=== PATIENT | female | born 1995 | race Caucasian/White ===

== ENCOUNTER → 2024-05-10 12:48 | Outpatient (CLI) | payer OTHER, SELFPAY ==
[2024-05-10 18:35] LABS: TSH w/ Reflex to FT4 1.64 uIU/mL (0.47-4.68)
== END ==
LOC: LAB 12:50
PROVIDERS: Referring Provider Obstetrics & Gynecology; Visit Provider Obstetrics & Gynecology
DX: Z86.39 Personal history of other endocrine, nutritional and metabolic disease (principal)
CPT/HCPCS: 36415; 84443

== ENCOUNTER → 2024-12-20 09:58 | Outpatient (CLI) | payer OTHER, SELFPAY ==
--- NOTE | 2024-12-20 09:59 | DI.US.S_ITS ---
PROCEDURE: US OB <= 14 WEEKS FETUS INDICATIONS: bleeding OUTSIDE/PRIOR DATING DATA: Last menstrual period (LMP): 11/05/2024. LMP-based estimated date of delivery (GHASSAN): 08/12/2025. First dating scan (date and location): 12/20/2024. Estimated date of delivery (GHASSAN) from first dating scan: 08/15/2025. TECHNIQUE: Real-time scanning was performed of the fetus and maternal pelvic organs, with image documentation. Endovaginal scanning was also performed to better visualize the fetus and maternal ovaries. COMPARISON: None. FINDINGS: Intrauterine gestational sac present. Embryo: Present, measuring 4 millimeters, corresponding to 6 weeks 0 days. Heart rate: 103 beats per minute. Maternal organs: Ovaries are unremarkable. Small subchorionic hemorrhage measuring 2.6 x 1.5 x 1.6 centimeter. IMPRESSION: Single living intrauterine at 6 weeks 0 days, GHASSAN 08/15/2025 based on today's examination. Borderline bradycardia. Attention on follow-up. Small subchorionic hemorrhage measuring 2.6 x 1.5 x 1.6 centimeter. We strive to produce accurate, complete, and clear reports of imaging services. To assist us in improving patient care, this report was composed using standard report templates and voice recognition software. Therefore, it may contain abnormal punctuation, insertions and/or omissions. Occasional wrong-word or sound-alike substitutions may occur. Though we review the report and make efforts to correct it, we do recommend that the report be read carefully in proper context to recognize any text inaccuracies. Dictated by: Jackson Velez M.D. on 12/20/2024 at 10:44 Approved by: Jackson Velez M.D. on 12/20/2024 at 10:46
[2024-12-20 10:55] LABS: Add Manual Diff / Slide Review NO; Basophils Absolute Auto 0 /uL (0-100); Basophils Percent Auto 0.7 % (0-2); Eosinophils Absolute Auto 0 /uL (0-450); Eosinophils Percent Auto 0.7 % (2-4); Hematocrit 33.8 % (36-46); Hemoglobin 12.1 g/dL (12.0-16.0); Lymphocytes Absolute Auto 1300 /uL (1100-4500); Lymphocytes Percent Auto 28.7 % (25-40); Mean Corpuscular HGB Conc 35.7 % (30-36); Mean Corpuscular Hemoglobin 32.3 PG (26-34); Mean Corpuscular Volume 90.5 fL (80-100); Monocytes Absolute Auto 400 /uL (0-900); Neutrophils Absolute Auto 2900 /uL (1500-7000); Neutrophils Percent Auto 60.9 % (50-75); Platelet Count 225 X10^3/uL (150-400); Red Blood Cell Count 3.73 X10^6/uL (4.0-5.2); Red Cell Distribution Width 11.8 % (11.6-14.8); White Blood Cell Count 4.7 X10^3/uL (4.5-11.0)
[2024-12-20 11:06] LABS: Appearance Urine UA CLEAR; Bilirubin Urine UA NEGATIVE (NEGATIVE); Color Urine UA YELLOW; Glucose Urine UA NEGATIVE (Negative); Ketones Urine UA NEGATIVE (NEGATIVE); Leukocyte Esterase Urine UA NEGATIVE (NEGATIVE); Nitrite Urine UA NEGATIVE (Negative); Occult Blood Urine UA 1+ (Negative); Protein Urine UA NEGATIVE (Negative); Specific Gravity Urine UA <=1.005 (1.000-1.035); Urobilinogen Urine UA 0.2 E.U./dL (0.2); pH Urine UA 5.5 (4.5-8.0)
[2024-12-20 11:09] LABS: Urine Volume 10mL (spun)
[2024-12-20 11:12] LABS: Bacteria Urine None Seen; RBC Urine 0-1/HPF (0-5/HPF); Squamous Epithelial Cell Urine 1-5 /HPF (0-5/HPF); WBC Urine None Seen (0-5/HPF)
[2024-12-20 11:33] LABS: Free T4, Direct Thyroxine 0.69 ng/dL (0.78-2.19)
[2024-12-20 11:47] LABS: Thyroid Stimulating Hormone 2.38 uIU/mL (0.47-4.68)
[2024-12-20 11:59] LABS: HCG Quantitative /Beta subunit 45289 mIU/mL
[2024-12-21 04:41] LABS: RPR Screen Non Reactive (Non Reactive)
[2024-12-21 06:07] LABS: Varicella IgG Antibody Reactive (Non Reactive)
[2024-12-21 15:28] LABS: Hepatitis B Surface Antigen NEGATIVE s/c (NEGATIVE); Rubella Antibody IgG 34.5 IU/mL (>15)
[2024-12-21 15:44] LABS: Hep C Virus Ab w/Reflex Quant NEGATIVE s/c (NEGATIVE)
[2024-12-21 16:24] LABS: HIV 1 & 2 Ab/Ag 4th Gen Combo NEGATIVE (NEGATIVE)
== END ==
PROVIDERS: Referring Provider Student in an Organized Health Care Education/Training Program; Visit Provider Student in an Organized Health Care Education/Training Program
DX: O20.0 Threatened abortion (principal); Z86.39 Personal history of other endocrine, nutritional and metabolic disease; Z3A.01 Less than 8 weeks gestation of pregnancy
CPT/HCPCS: 36415; 76801; 76817; 80055; 81003; 81015; 84439; 84443; 84702; 86787; 86803; 86850; 86900; 86901; 87086; 87389

== ENCOUNTER → 2025-01-03 10:50 | Outpatient (CLI) | payer OTHER, SELFPAY ==
--- NOTE | 2025-01-03 10:52 | DI.US.S_ITS ---
PROCEDURE: US OB <= 14 WEEKS FETUS INDICATIONS: gestational sac bleed OUTSIDE/PRIOR DATING DATA: Last menstrual period (LMP): 11/05/2024. LMP-based estimated date of delivery (GHASSAN): 08/12/2025. First dating scan (date and location): 12/20/2024. Estimated date of delivery (GHASSAN) from first dating scan: 08/15/2025. TECHNIQUE: Real-time scanning was performed of the fetus and maternal pelvic organs, with image documentation. Endovaginal scanning was also performed to better visualize the fetus and maternal ovaries. COMPARISON: [facility], , OB <= 14 WEEKS FETUS, 12/20/2024, 10:11. FINDINGS: Embryo: Fidelis-rump length measuring 1.7 cm, gestational age 8 weeks 1 day. Heart rate: 165 bpm Small subchorionic hemorrhage measuring 1.9 x 1.7 x 1.6 cm, decreased. A yolk sac is seen. Maternal organs: Ovaries are within normal limits. Cervix measures 2.8 cm. IMPRESSION: 1. Feliz living intrauterine at 8 weeks 1 day based on today's crown rump length. heart rate 165 bpm. 2. Small perigestational hemorrhage measuring 1.9 cm is decreased. We strive to produce accurate, complete, and clear reports of imaging services. To assist us in improving patient care, this report was composed using standard report templates and voice recognition software. Therefore, it may contain abnormal punctuation, insertions and/or omissions. Occasional wrong-word or sound-alike substitutions may occur. Though we review the report and make efforts to correct it, we do recommend that the report be read carefully in proper context to recognize any text inaccuracies. Dictated by: Truong Pelaez M.D. on 01/03/2025 at 13:58 Approved by: Truong Pelaez M.D. on 01/03/2025 at 14:03
== END ==
PROVIDERS: Referring Provider Student in an Organized Health Care Education/Training Program; Visit Provider Student in an Organized Health Care Education/Training Program
DX: O20.8 Other hemorrhage in early pregnancy (principal); Z3A.08 8 weeks gestation of pregnancy
CPT/HCPCS: 76801; 76817

== ENCOUNTER → 2025-06-20 10:26 | Outpatient (CLI) | payer OTHER, SELFPAY ==
[2025-06-20 10:39] LABS: Appearance Urine UA SL CLOUDY; Bilirubin Urine UA NEGATIVE (NEGATIVE); Color Urine UA YELLOW; Glucose Urine UA NEGATIVE (Negative); Ketones Urine UA TRACE (NEGATIVE); Leukocyte Esterase Urine UA NEGATIVE (NEGATIVE); Nitrite Urine UA NEGATIVE (Negative); Occult Blood Urine UA NEGATIVE (Negative); Protein Urine UA TRACE (Negative); Specific Gravity Urine UA 1.025 (1.000-1.035); Urobilinogen Urine UA 1.0 E.U./dL (0.2)
[2025-06-20 10:43] LABS: pH Urine UA 6.0 (4.5-8.0)
[2025-06-20 10:44] LABS: Culture Indicated Urine Cult Not Indicated
== END ==
PROVIDERS: Visit Provider Student in an Organized Health Care Education/Training Program
DX: R10.30 Lower abdominal pain, unspecified (principal)
CPT/HCPCS: 81001; 87210

== ENCOUNTER → 2025-06-20 10:37 | Outpatient (CLI) | payer OTHER, SELFPAY ==
--- NOTE | 2025-06-20 10:40 | DI.US.S_ITS ---
PROCEDURE: US OB LIMITED INDICATIONS: Growth US for Marginal Cord Insertion OUTSIDE/PRIOR DATING DATA: Last menstrual period (LMP): 11/05/2024. LMP-based estimated date of delivery (GHASSAN): 08/12/2025. First dating scan (date and location): 12/20/2024. Estimated date of delivery (GHASSAN) from first dating scan: 08/15/2025. TECHNIQUE: Real-time scanning was performed of the fetus, with image documentation and biometric measurements. Biophysical profile was also obtained. Endovaginal scanning: Not performed COMPARISON: [facility], , US OB <= 14 WEEKS FETUS, 01/03/2025, 11:03. FINDINGS: General: A single living intrauterine gestation is present. Presentation: Breech. Placenta: Placental position is posterior, without previa. Amniotic fluid index: 12.5 cm, normal range is 5-24 cm. Single deepest vertical pocket is 4.6 cm. heart rate: 145 beats per minute. Maternal cervical canal: 3.6 cm long. Normal lower limit is 2.5 cm. biometrics: Biparietal diameter: 8.0 cm, 32 weeks 1 day Head circumference: 30.6 cm, 34 weeks 1 day Abdominal circumference: 30.5 cm, 34 weeks 3 days Femur length: 6.0 cm, 31 weeks 3 days Clinically estimated gestational age: 32 weeks 4 days Composite gestational age from present scan: 33 weeks 0 days Estimated weight and percentile: 2171 g, 70th percentile renal collecting systems measure 5 mm. Upper limits of normal. Marginal insertion of the umbilical cord on the placenta. IMPRESSION: 1. Feliz living intrauterine at 33 weeks 0 days based on today's ultrasound. Concordant with prior dating +/-3 weeks. Fetus is in the 70th percentile overall for weight. Breech position. 2. Normal amniotic fluid. Marginal insertion of the placenta. We strive to produce accurate, complete, and clear reports of imaging services. To assist us in improving patient care, this report was composed using standard report templates and voice recognition software. Therefore, it may contain abnormal punctuation, insertions and/or omissions. Occasional wrong-word or sound-alike substitutions may occur. Though we review the report and make efforts to correct it, we do recommend that the report be read carefully in proper context to recognize any text inaccuracies. Dictated by: Truong Pelaez M.D. on 06/20/2025 at 12:23 Approved by: Truong Pelaez M.D. on 06/20/2025 at 12:31
[2025-06-20 12:33] LABS: Add Manual Diff / Slide Review NO; Hematocrit 31.9 % (36-46); Hemoglobin 11.5 g/dL (12.0-16.0); Lymphocytes Absolute Auto 1200 /uL (1100-4500); Mean Corpuscular HGB Conc 35.9 % (30-36); Mean Corpuscular Hemoglobin 31.9 PG (26-34); Mean Corpuscular Volume 88.8 fL (80-100); Platelet Count 226 X10^3/uL (150-400)
[2025-06-20 12:52] LABS: Alanine Aminotransferase 20 IU/L (<35); Albumin 3.4 g/dL (3.5-5.0); Albumin Globulin Ratio 1.3 (1.0-2.8); Alkaline Phosphatase 109 U/L (38-126); Blood Urea Nitrogen 7 mg/dL (7-17); Calcium 8.9 mg/dL (8.4-10.2); Carbon Dioxide 22 mmol/L (22-32); Chloride 105 mmol/L (98-107); Estimated Glomerular Filt Rate > 60 mL/min (>60); Globulin 2.6 g/dL (1.7-4.1); Glucose 98 mg/dL (70-99); HEMOLYSIS < 15 (0-50); Potassium 3.8 mmol/L (3.4-5.1); Sodium 134 mmol/L (137-145); Total Protein 6.0 g/dL (6.3-8.2)
== END ==
LOC: US 10:39
PROVIDERS: Referring Provider Student in an Organized Health Care Education/Training Program; Visit Provider Student in an Organized Health Care Education/Training Program
DX: O43.193 Other malformation of placenta, third trimester (principal); O21.9 Vomiting of pregnancy, unspecified; Z3A.33 33 weeks gestation of pregnancy
CPT/HCPCS: 36415; 76815; 80053; 85025

== ENCOUNTER → 2025-07-12 08:27 | Outpatient (CLI) | payer OTHER, SELFPAY ==
--- NOTE | 2025-07-12 08:28 | DI.US.S_ITS ---
PROCEDURE: US OB LIMITED INDICATIONS: EFW The calculations are made using the working GHASSAN of 08/12/2025. TECHNIQUE: Real-time scanning was performed of the fetus, with image documentation. Endovaginal scanning: No COMPARISON: [facility], OB LIMITED, 06/20/2025, 10:55. FINDINGS: A single living intrauterine gestation is present. Presentation: Vertex. Placenta: Placental position is fundal, without previa. Amniotic fluid index: 18.7 cm, normal range is 5-24 cm. Single deepest vertical pocket is 6.2 cm. heart rate: 140 beats per minute. Maternal cervical canal: Nonvisualized Clinically estimated gestational age: 35 week 2 day Estimated gestational age from initial scan: 35 week 4 day. IMPRESSION: Single live intrauterine consistent with 35 week 2 day gestation by current ultrasound Approved by: Butch Monk M.D. on 07/12/2025 at 19:12
== END ==
LOC: US 08:27
PROVIDERS: Referring Provider Student in an Organized Health Care Education/Training Program; Visit Provider Student in an Organized Health Care Education/Training Program
DX: O43.193 Other malformation of placenta, third trimester (principal); Z3A.35 35 weeks gestation of pregnancy
CPT/HCPCS: 76815

== ENCOUNTER → 2025-07-19 10:20 | Outpatient (CLI) | payer OTHER, SELFPAY ==
[2025-07-20 13:28] LABS: Strep Grp B PCR NEG for Grp B Strep
== END ==
PROVIDERS: PCP Student in an Organized Health Care Education/Training Program; Visit Provider Student in an Organized Health Care Education/Training Program
DX: Z34.90 Encounter for supervision of normal pregnancy, unspecified, unspecified trimester (principal); Z3A.36 36 weeks gestation of pregnancy
CPT/HCPCS: 87653

== ENCOUNTER 2025-08-04 19:34 | Inpatient (IN) | payer OTHER, SELFPAY ==
[2025-08-04] VITALS (8 sets, daily range): BP systolic 116–159; BP diastolic 72–80; PULSE 72–84; RESP 16–29; TEMP 36.3–36.5; O2SAT 99–100
--- NOTE | 2025-08-04 19:48 | PM.OBHP.IH.1 ---
OB HPI Date/Time Date of admission: 08/04/25 Date Patient Seen: 08/04/25 History of Present Condition Chief complaint: Labor GHASSAN Calculator Estimated Delivery Date Method Current WG Current Estimate 08/12/25 LMP (Certain) 38w 6d : 2 Para: 1 Narrative: This is a 30 yo at 38w6d here with spontaneous labor and spontaneous rupture of membranes. has been complicated by hx of , and marginal cord insertion with good growth. GBS neg. Dating criteria OB: LMP confirmed by 1st trimester US Ultrasounds: normal 1st trimester US and abnormal US findings (marginal cord insertion) Obstetrical complications: none Medical complications OB: none Indications Operative indications ( section): previous uterine surgery Preadmission Labs Last OB Lab Results: Blood Type O Positive 12/20/24, 10:35 Antibody Screen Negative 12/20/24, 10:35 Hct, (36-46) 31.9 % L 06/20/25, 12:03 Hgb, (12.0-16.0) 11.5 g/dL L 06/20/25, 12:03 Hep Bs Antigen, (NEGATIVE) Negative s/c 12/20/24, 10:35 Hepatitis C Antibody, (NEGATIVE) Negative s/c 12/20/24, 10:35 Rubella Antibody, (>15) 34.5 IU/mL 12/20/24, 10:35 VZV IgG Antibody, (Non Reactive) Reactive 12/20/24, 10:35 Group B Strep (PCR) Neg for grp b strep 07/19/25, 10:30 Prior (ies) Past Pregnancies Del. Date GA/Weeks Labor Lgth Wt Sex Route Outcome Anesthesia Place Delv Breastfeed Preg Comp Name 02/24/24 39 12 8 lb 13 oz Female live - full term epidural [place], [place] pumped 2 1/2 months Stephanie Evaluation Evaluation Baseline heart rate: 135 Variability: Moderate (6-25) monitor accelerations: Present Monitor Decelerations: Absent Uterine Contraction Intensity: Moderate Category of Tracing: Reactive Status: Category l PFSH Medical History (Updated 06/08/25 @ 13:51 by Arabella Yi DO) Nausea and vomiting during Acute gastroenteritis History of HPV infection Candidal dermatitis Surgical History (Updated 12/08/24 @ 15:10 by Sandra Lawson RN) H/O section H/O spinal fusion Family History (Updated 12/08/24 @ 15:12 by Sandra Lawson RN) Father Hypertension Hyperlipidemia Macular degeneration Grandmother Breast cancer Grandfather Diabetes mellitus Hypertension Social History marital status: number of children: 1 household members: spouse and children lives independently: Yes caregiver/support person: Yes housing: house pets and animals: Yes (dog) education level: high school occupational status: unemployed current occupational exposures/hazards: No special jammie needs: No travel history: recent ([place]) seatbelt use: always helmet use: Yes water heater temp set < 120 deg: Yes working smoke detector in home: Yes fire extinguisher in home: Yes carbon monox detector in home: Yes firearms in home: No do you feel safe at home: Yes second hand exposure: No alcohol intake: former (~1-5/week when not ) substance use type: does not use during the past year weight has: other (daughter is 9 months, was within 10 lb of non- weight at conception) well-balanced diet: rarely or never daily servings fruits/ve-1 (1-2) caffeine: Yes (single cup coffee in AM) Type(s) of exercise: none (active w/ baby) Meds Home Medications and Allergies Home Medications ?Medication ?Instructions ?Recorded ?Confirmed ?Type vitamin-ferrous sulfate tab PO 12/08/24 08/02/25 History 27 mg iron-folic acid 0.8 mg tablet ondansetron 4 mg disintegrating 4 mg PO Q8H PRN nausea and 06/08/25 08/02/25 Rx tablet vomiting #20 tabs famotidine 40 mg tablet 40 mg PO BID #60 tabs 06/28/25 08/02/25 Rx sertraline 200 mg capsule 200 mg PO DAILY 06/28/25 08/02/25 History valacyclovir 1 gram tablet 1,000 mg PO DAILY #10 tabs 07/12/25 08/02/25 Rx (Valtrex) amoxicillin 875 mg-potassium 1 tab PO BID #14 tabs 07/21/25 08/02/25 Rx clavulanate 125 mg tablet Allergies Allergy/AdvReac Type Severity Reaction Status Date / Time metoclopramide Allergy Verified 08/02/25 15:08 Assessment and Plan Assessment and Plan Assessment and Plan narrative: This is a 30 yo at 38w6d here with spontaneous labor and spontaneous rupture of membranes. has been complicated by hx of , and marginal cord insertion with good growth. GBS neg. #Hx of #SROM -admit for repeat -ancef + azithromycin for ruptured membranes -It was explained to the patient that a section is a surgery to deliver the baby through an incision in the abdominal wall and uterus. All procedures can be associated with risk and unforeseen complications, which can be immediate or delayed. Risks and complications of section include, but are not limited to: infection of the uterus, pelvic organs, or skin; inadvertent injury to internal organs such as the bowel, bladder, or possibly even the baby; blood loss, transfusion, and/or life-threatening hemorrhage requiring hysterectomy; blood clots in the legs, pelvic organs, or lungs; adverse reaction to medications or anesthesia during surgery; development of placenta accreta spectrum in a subsequent ; and increased risk of section in a subsequent . Time-Based Coding :: 45 minutes spent with patient and on the chart (including review of chart, obtaining history, exam, reviewing outside data, placing orders, documenting exam and treatment plan, and counseling patient) on 08/04/2025.
[2025-08-04 19:58] LABS: Add Manual Diff / Slide Review NO; Hematocrit 35.0 % (36-46); Hemoglobin 12.1 g/dL (12.0-16.0); Lymphocytes Absolute Auto 1900 /uL (1100-4500); Mean Corpuscular HGB Conc 34.5 % (30-36); Mean Corpuscular Hemoglobin 29.8 PG (26-34); Mean Corpuscular Volume 86.5 fL (80-100); Platelet Count 211 X10^3/uL (150-400)
[2025-08-04] MEDS: LACTATED RINGERS 1,000 ML 999 ML IV ×2 (20:05→21:29)
[2025-08-04] MEDS: CITRIC ACID/SODIUM CITRATE 15 ML SOLUTION 30 ML PO (20:06)
[2025-08-04] MEDS: AZITHROMYCIN 500 MG in DEXTROSE 5% IN WATER 250 ML 250 MG IV (20:41)
[2025-08-04] MEDS: ACETAMINOPHEN IV 1,000 MG/100 ML VIAL 400 MG IV (20:52)
--- NOTE | 2025-08-04 20:56 | SUR.OPER ---
Supine on Padded OR bed, head on pillow, safety belt at thigh, arms secured on padded arm boards at <90 degrees abduction. Bump under right buttock. Legs uncrossed with pillow under knees, gel pad to heels, tape over blanket to lower legs.
--- NOTE | 2025-08-04 21:54 | SUR.OPER ---
Pre incision FHR 136 Procedure converted to general after continued feeling post spinal Viable baby boy born at 2120 placenta and cord blood sent with baby warmer
[2025-08-04] MEDS: fentaNYL 100 MCG/2 ML INJ IV ×2 (22:11→22:21)
[2025-08-04] MEDS: hydrOXYzine 50 MG/ML INJ 25 MG IM (22:14)
--- NOTE | 2025-08-04 22:20 | PM.OBCS.1 ---
Operative Date/Time/Diagnoses Date of procedure: 08/04/25 Time of procedure: 21:00 Pre-op diagnosis: Hx of Delivery Spontaneous Labor 38w6d Gestation Spontaneous Rupture of Membranes Post-op diagnosis: same Procedure & Clinicians Procedure: Repeat Delivery Same procedure(s) as scheduled: Yes Surgeon: Kelsey Benson Click Yes if Unassisted: Yes Line Assembler Aircraft: Rodrick Leong Anesthesia Type: General Operative Notes Findings: Normal uterus, ovaries, and tubes Closure Type: primary Specimen(s): cord blood Intraoperative meds administered: Tranexamic acid Applied: Catheter Estimated Blood Loss (mL): 500 Blood products transfused: none Procedure in detail: OPERATIVE COURSE: The patient was taken to the operating room where spinal anesthesia was placed. She was then prepared and draped in the normal sterile fashion in the dorsal supine position with a leftward tilt. Anesthesia was tested and found to be inadequate. Patient was placed under general anesthesia. A Pfannensteil skin incision was then made with the scalpel and carried through to the underlying layer of fascia with the scalpel. The fascia was incised in the midline and the incision extended laterally with the Meredith scissors. The superior aspect of the fascial incision was then grasped with Cristobal clamps, elevated with the help of the surgical clinical reviewer, and the underlying rectus muscles dissected off bluntly and sharply where needed. Attention was then turned to the inferior aspect of the incision which, in a similar fashion, was grasped, tented up with Cristobal clamps, and the rectus muscle dissected off bluntly and sharply with Meredith scissors. The rectus muscles were then in the midline, and the peritoneum was identified and entered bluntly. The peritoneal incision was then extended with good visualization of the bladder. Retraction was provided by the surgical clinical reviewer. The Moreno retractor was then placed. The lower uterine segment incised in a transverse fashion with the scalpel, with the surgical clinical reviewer providing suction. The uterine incision was then extended superolaterally by pulling superolaterally on both sides. Membranes were ruptured and fluid was clear. The bladder blade was removed the 's head was flexed out of OA position and delivered atraumatically, with fundal pressure by the surgical clinical reviewer. The nose and mouth were suctioned with bulb suction and the cord was clamped and cut. The was handed off to the waiting nursing staff. Cord blood was collected for Rh status. The placenta was then delivered manually due to marginal insertion. The uterus was cleared of all clots and debris. The uterine incision was repaired with in a running, locked fashion. A second layer of O monocryl was used to obtain excellent hemostasis. The gutters were cleared of all clots. Hysterotomy was investigated and found to be hemostatic. The moreno retractor was removed. The peritoneum was closed with 3-0 vicryl. The fascia was reapproximated with 0 vicryl in a running fashion. The subcutaneous tissue was reapproximated with 3-0 vicryl. The skin was closed with monocryl on a joanne needle. The surgical clinical reviewer helped with retraction during closures. SPONGE AND NEEDLE COUNTS: Correct x3. DRESSING: Steri strips and telfa dressing ANTICOAGULATION: SCDs applied prior to Surgery Preop antibiotics given (see MAR). The patient was taken to recovery room having tolerated procedure well. Complications: none Post-operative Condition: stable Disposition: PACU Aftercare: routine postop
[2025-08-04] MEDS: KETOROLAC 30 MG/ML VIAL IV (22:31)
[2025-08-04] MEDS: LACTATED RINGERS 1,000 ML 42 ML IV (22:38)
[2025-08-05] MEDS: ONDANSETRON 4 MG/2 ML INJ IV ×3 (00:32→18:31)
[2025-08-05] MEDS: LANOLIN OINT 7 GM 1 APPLIC TOP (03:10)
[2025-08-05] MEDS: ACETAMINOPHEN 325 MG TABLET 650 MG PO ×4 (03:27→23:55)
[2025-08-05] MEDS: diphenhydrAMINE 50 MG/ML VIAL 25 MG IV (03:27)
[2025-08-05] MEDS: KETOROLAC 30 MG/ML VIAL IV ×3 (04:28→18:03)
[2025-08-05] MEDS: NALBUPHINE 20 MG/ML AMPUL 5 MG IV (06:29)
[2025-08-05 06:44] LABS: Add Manual Diff / Slide Review NO; Hematocrit 27.2 % (36-46); Hemoglobin 9.4 g/dL (12.0-16.0); Lymphocytes Absolute Auto 900 /uL (1100-4500); Mean Corpuscular HGB Conc 34.6 % (30-36); Mean Corpuscular Hemoglobin 30.0 PG (26-34); Mean Corpuscular Volume 86.5 fL (80-100); Platelet Count 191 X10^3/uL (150-400)
[2025-08-05] MEDS: FERROUS SULFATE 325 MG TABLET PO (08:37)
[2025-08-05] MEDS: PRENATAL VIT,CALC/IRON/FOLIC 1 TABLET 1 TAB PO (08:37)
[2025-08-05] MEDS: DOCUSATE 100 MG CAPSULE PO (08:37)
[2025-08-05 08:38] VITALS: TEMP 36.9
[2025-08-05] MEDS: SERTRALINE 50 MG TABLET 200 MG PO (09:57)
--- NOTE | 2025-08-05 10:54 | PM.OBPN.1 ---
Subjective - OB Subjective Patient comments: other [place] baby status: doing well, nursing well and bottle feeding well feeding status: breast and bottle feeding Narrative: This is a 30 yo G2 now P2 who delivered via rLTCS at 38w6d following spontaneous labor and spontaneous rupture of membranes. complicated by hx of , and marginal cord insertion with good growth, maternal use of sertraline. GBS neg. Date Patient Seen: 08/05/25 Interval history: [facility] Patient has had significant pain following under general anesthesia after failed spinal. Pain control initially in PACU requiring morphine, fentanyl, and dilaudid. Now moderately conrolled with IV dilaudid, oral oxycodone, toradol, tylenol and gabapentin added this AM. She does have hx of 6 year use of opioid medications for back pain, now s/p fusion surgery prior to last . No issues last CS. She is eating, and in good spirits. Exam Vital Signs (past 8 hours): - 08/05/25 08:38 Temperature 98.4 F Oxygen Delivery Method Room Air Narrative Exam Narrative: NAD, resting comfortably in bed Objective Labs 08/05/25 06:27 Labs: Laboratory Results - last 24 hr 08/04/25 08/05/25 19:50 06:27 WBC 8.4 10.4 RBC 4.05 3.15 L Hgb 12.1 9.4 L Hct 35.0 L 27.2 L MCV 86.5 86.5 MCH 29.8 30.0 MCHC 34.5 34.6 RDW 12.7 12.6 Plt Count 211 191 Neut % (Auto) 68.0 87.1 H Lymph % (Auto) 22.0 L 8.6 L [place] % (Auto) 8.7 4.1 Eos % (Auto) 0.5 L 0.1 L Baso % (Auto) 0.8 0.1 Neut # (Auto) 5700 9100 H Lymph # (Auto) 1900 900 L [place] # (Auto) 700 400 Eos # (Auto) 0 0 Baso # (Auto) 100 0 Blood Type O Positive Antibody Screen Negative Assessment & Plan Plan day: 1 plan OB: routine care and routine postop care Comments: 30 yo G2 now P2 [facility] Patient has had significant pain following under general anesthesia after failed spinal. Pain control initially in PACU requiring morphine, fentanyl, and dilaudid. Now moderately controlled with IV dilaudid, oral oxycodone, toradol, and tylenol. She does have hx of 6 year use of opioid medications for back pain, now s/p fusion surgery prior to last . No issues last CS. -continue IV dilaudid, PO oxycodone, IV toradol (24 hours), tylenol -start gabapentin 300 mg BID -encourage ambulation as tolerated -anticipate additional 2 nights in hospital for post op pain Time-Based Coding :: 30 minutes spent with patient and on the chart (including review of chart, obtaining history, exam, reviewing outside data, placing orders, documenting exam and treatment plan, and counseling patient) on 08/05/2025.
[2025-08-05] MEDS: GABAPENTIN 300 MG CAPSULE PO ×2 (12:43→21:06)
[2025-08-05 18:03] VITALS: TEMP 36.4
[2025-08-05 18:34] VITALS: TEMP 36.3
[2025-08-05] MEDS: NALBUPHINE 20 MG/ML AMPUL 10 MG IV (20:12)
[2025-08-06] MEDS: IBUPROFEN 600 MG TABLET PO ×4 (00:06→18:15)
[2025-08-06] MEDS: ONDANSETRON 4 MG/2 ML INJ IV ×2 (00:07→06:10)
[2025-08-06] MEDS: ACETAMINOPHEN 325 MG TABLET 650 MG PO ×3 (06:10→18:16)
[2025-08-06] MEDS: DOCUSATE 100 MG CAPSULE PO (08:50)
[2025-08-06] MEDS: PRENATAL VIT,CALC/IRON/FOLIC 1 TABLET 1 TAB PO (08:50)
[2025-08-06] MEDS: FERROUS SULFATE 325 MG TABLET PO (08:50)
[2025-08-06] MEDS: SERTRALINE 50 MG TABLET 200 MG PO (08:51)
[2025-08-06] MEDS: GABAPENTIN 300 MG CAPSULE PO ×2 (08:51→20:52)
[2025-08-06 11:36] VITALS: TEMP 36.4
[2025-08-06] MEDS: ONDANSETRON 4 MG ODT SL (12:13)
[2025-08-06] MEDS: PROMETHAZINE 25 MG TABLET 12.5 MG PO ×2 (15:42→21:35)
[2025-08-06 18:15] VITALS: TEMP 36.8
[2025-08-06 18:16] VITALS: TEMP 36.8
--- NOTE | 2025-08-06 21:51 | PM.OBPN.1 ---
Subjective - OB Subjective Narrative: Patient reports that she continues to have a significant amount of pain when moving. She is in less pain when just laying in bed. She also continues to have nausea. Her lochia is decreasing appropriately. She has voided successfully. She is passing gas. Exam Vital Signs (past 8 hours): - 08/06/25 18:15 08/06/25 18:16 Temperature 98.2 F 98.2 F Oxygen Delivery Method Room Air Resp Auscultation: clear to auscultation bilaterally Cardio Rate: regular rate Rhythm: regular rhythm Heart Sounds: S1 normal, S2 normal and no murmurs GI Inspection: non-distended and incision (dressing c/d/i) Palpation: soft, No guarding and tender (appropriately tender) Auscultation: normal bowel sounds Other: fundus firm and below the umbilicus Extrem Right upper extremity: no edema Objective Labs 08/05/25 06:27 Assessment & Plan Plan Comments: Pt is a 30yo POD#1 s/p without complications. Pt doing well overall, still with some pain control issues. - Normal care - support - Zofran PRN for nausea - Continue to encourage ambulation Time-Based Coding :: [TOTAL MINUTES] spent with patient and on the chart (including review of chart, obtaining history, exam, reviewing outside data, placing orders, documenting exam and treatment plan, and counseling patient) on [DATE].
[2025-08-07] MEDS: ACETAMINOPHEN 325 MG TABLET 650 MG PO ×2 (00:13→04:51)
[2025-08-07] MEDS: IBUPROFEN 600 MG TABLET PO ×2 (00:13→04:51)
[2025-08-07] MEDS: ONDANSETRON 4 MG ODT SL ×2 (00:22→02:56)
--- NOTE | 2025-08-07 08:22 | PM.OBDS.1 ---
Discharge Providers Provider Date of admission: 08/04/25 19:34 Discharge Date: 08/07/25 Primary care physician: Kelsey Benson MD Consults: 08/04/25 23:40 Consult to Furniture Removalist Routine Comment: Discharge provider: Constanza Garcia MD Summary Hospital Course Date Patient Seen: 08/07/25 Diagnoses: 38w6d gestation Hx of prior Marginal cord insertion Repeat Hospital Course: The pt presented in labor. Due to hx of prior she underwent repeat without complications and delivered a viable baby boy. After delivery, she had significant issues with pain control. This gradually improved with narcotic pain medications in addition to Gabapentin. She also had significant nausea requiring Zofran and Promethazine to control. , there were no additional complications. At the time of discharge she was voiding, ambulating, and passing flatus without difficulty. Her lochia was decreasing appropriately. Her pain was well controlled. She will f/u in 1 week for incision check. Time Spent with Patient Time attestation: Total time spent providing and/or coordinating discharge services: Objective Labs 08/05/25 06:27 Exam Vital Signs (past 8 hours): Oxygen Delivery Method Room Air Resp Auscultation: clear to auscultation bilaterally Cardio Rate: regular rate Rhythm: regular rhythm Heart Sounds: S1 normal, S2 normal and no murmurs GI Inspection: non-distended and incision (dressing c/d/i) Palpation: soft, No guarding and tender (appropriately tender) Auscultation: normal bowel sounds Other: fundus firm and below the umbilicus Extrem Right upper extremity: no edema Discharge Plan Discharge Plan Patient Disposition: Home Discharge orders & Medications Prescriptions: New acetaminophen 325 mg Tablet 650 mg PO Q6H Qty: 60 0RF ferrous sulfate 325 mg (65 mg iron) Tablet 325 mg PO DAILY Qty: 30 0RF promethazine 25 mg Tablet 12.5 mg PO Q6HR PRN (Reason: Nausea) Qty: 30 0RF docusate sodium 100 mg Capsule 100 mg PO DAILY Qty: 30 0RF gabapentin 300 mg Capsule 300 mg PO BID Qty: 60 0RF ibuprofen 600 mg Tablet 600 mg PO Q6H Qty: 60 0RF oxycodone 5 mg Tablet 5 - 10 mg PO Q4H PRN (Reason: Pain, Moderate (4-6)) Qty: 40 0RF ondansetron 4 mg tablet,disintegrating 4 mg PO Q6H PRN (Reason: nausea and vomiting) Qty: 30 0RF Continued famotidine 40 mg tablet 40 mg PO BID Qty: 60 3RF sertraline 200 mg capsule 200 mg PO DAILY vit-ferrous sulfat-FA 27 mg iron- 0.8 mg tablet PO ondansetron 4 mg tablet,disintegrating 4 mg PO Q8H PRN (Reason: nausea and vomiting) Qty: 30 1RF Follow up/Referrals: Kelsey Benson MD [Primary Care Provider, [facility]] - 08/18/25 2:45 pm Referral Note: Incision check appt with Dr. PENALOZA on 08/18/2025 @ 1445 6 week post appt on 09/19/2025 @ 2:30pm Diet/Activity/Treatments Diet: Diet as Tolerated and Regular Skin/Wound/Dressing Care Report to your healthcare provider any signs of infection, such as:: chills, fever, increased pain and unusual drainage Visit Report/Discharge Packet Instructions: DI for Stand Alone Forms: Discharge: Care, Patient Portal/API, Stroke Signs & Symptoms Discharge Data Primary Care Provider: Kelsey Benson Discharges patient from system. Discharge Date/Time: 08/07/25 10:45
[2025-08-07] MEDS: GABAPENTIN 300 MG CAPSULE PO (08:52)
[2025-08-07] MEDS: PRENATAL VIT,CALC/IRON/FOLIC 1 TABLET 1 TAB PO (08:52)
[2025-08-07] MEDS: SERTRALINE 50 MG TABLET 200 MG PO (08:52)
[2025-08-07] MEDS: FERROUS SULFATE 325 MG TABLET PO (08:52)
[2025-08-07] MEDS: DOCUSATE 100 MG CAPSULE PO (08:52)
[2025-08-07] MEDS: DERMOPLAST SPRAY 20% 60 ML 1 SPRAY TOP (09:27)
[2025-08-07] MEDS: PROMETHAZINE 25 MG TABLET 12.5 MG PO (10:07)
[2025-08-07 10:12] VITALS: BP 159/80; PULSE 79; RESP 16; TEMP 36.8
== END 2025-08-07 10:45 | disposition home or self-care (01) | DRG 788 ==
PROVIDERS: Admitting Provider Student in an Organized Health Care Education/Training Program; PCP Student in an Organized Health Care Education/Training Program; Referring Provider Student in an Organized Health Care Education/Training Program; Visit Provider Student in an Organized Health Care Education/Training Program
PROC: 10D00Z1 Extraction of Products of Conception, Low, Open Approach (ICD-10-PCS; CPT 59514; principal; 2025-08-04 20:45)
DX: O34.211 Maternal care for low transverse scar from previous cesarean delivery (principal); Z3A.38 38 weeks gestation of pregnancy; Z37.0 Single live birth; O43.193 Other malformation of placenta, third trimester; Z98.1 Arthrodesis status
CPT/HCPCS: 36415; 59050; 59514; 59515; 85025; 86850; 86900; 86901; G0378; G0379; J0131; J0330; J0689; J1100; J1171; J1200; J1885; J2274; J2300; J2405; J2704; J3010; J3410; J7060; J7120